=== PATIENT | male | born 1940 | race Caucasian/White ===

== ENCOUNTER 2017-03-07 09:59 | Day surgery (SDC) | payer MEDICARE ==
[~2017-03-07 09:59] MED LIST: ASPI-COR81 MG PO; LOPRESSOR50 MG PO; LOVASTATIN20 MG PO; PRIMIDONE250 MG PO
--- NOTE | 2017-03-07 13:08 | Operative Note ---
Endoscopy Report Date: 03/07/17 Preoperative diagnosis: Occasional rectal bleeding and hemorrhoid symptoms Procedure Type of procedure: Colonoscopy with polypectomy via snare and biopsy forceps Indications: Patient is a 76-year-old white male originally referred from Dr. Steven Ricks for hemorrhoids. He is somewhat of a poor historian. He states that he's had long-standing history of intermittent hemorrhoid problems. He states that he previously had hemorrhoids when he underwent his last colonoscopy [address] Walsh[address] It was recommended the patient undergo follow-up colonoscopy in 5-6 years. Patient describes some bleeding and discomfort. 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 He has had some bleeding and discomfort. He was started on steroid suppositories. He does have a history of chronic constipation and is on GlycoLax. When I had seen him I started him on some steroid cream. Patient states that his bleeding is less but he still does have hemorrhoid issues. On examination he had a posterior anal skin tag and posterior lateral prolapsing hemorrhoid. Plan was made to initially proceed with colonoscopy. Consent was obtained and patient was taken to endoscopy procedure room. He was positioned in a lateral decubitus position. He underwent anesthesia titration of propofol for the procedure. He was found to have some mildly prolapsing hemorrhoids and prominent skin tag in the RIGHT posterior lateral location. Variable stiffness Olympus colonoscope was inserted via the anus. With profound difficulty it was advanced through the colon. Despite the patient undergoing abdominal pressure in various locations and in various positions including original LEFT lateral position, supine, prone, and RIGHT lateral position it was difficult to advance the colonoscope beyond the hepatic flexure. He was noted to have a small polyp and this was removed in a piecemeal fashion using cold biopsy forceps. In the proximal transverse colon there was a pedunculated approximately 8 or 9 mm polyp removed in a piecemeal fashion using cold snare. Colonoscope was withdrawn and then readvanced. Ultimately it was advanced into the RIGHT colon. The ileocecal valve was identified at the colonoscope could not be advanced beyond this. In the ascending colon there was a diminutive polyp removed in a piecemeal fashion using cold biopsy forceps. Colonoscope was then withdrawn through the colon. He had some sigmoid diverticulosis. Retroflexion within the rectum revealed internal hemorrhoids. Total procedure time 102 minutes. Findings 1. Diverticulosis 2. Polyp Follow-Up Follow-Up: Overall most notable features is the incredible almost inconceivable amount of floppiness and redundancy of his colon which added to the difficulty in the examination. I will follow-up the results of the pathology and repeat colonoscopy recommended based on this. He likely would benefit from high fiber and this may help his hemorrhoid symptoms. Given the nature of his colon and tendency for chronic constipation I would be very reluctant to recommend hemorrhoid surgery. at [id number]
[2017-03-07 13:40] VITALS: BP 140/73
== END 2017-03-07 13:39 | disposition home or self-care (01) ==
LOC: SDC 09:59
PROVIDERS: Surgery
PROC: 0DBK8ZX Excision of Ascending Colon, Via Natural or Artificial Opening Endoscopic, Diagnostic (ICD-10-PCS; 2017-03-07)
PROC: 0DBL8ZX Excision of Transverse Colon, Via Natural or Artificial Opening Endoscopic, Diagnostic (ICD-10-PCS; principal; 2017-03-07 11:00)
DX: K64.4 Residual hemorrhoidal skin tags (principal); K64.8 Other hemorrhoids; K62.5 Hemorrhage of anus and rectum; K63.5 Polyp of colon